=== PATIENT | female | born 1970 | race Caucasian/White ===

== ENCOUNTER 2025-05-17 22:15 | Emergency (ER) | payer MEDICAID ==
[~2025-05-17] VITALS: Ht 134.6 cm; Wt 65.0 kg
[2025-05-17 22:23] VITALS: O2SAT 98
[2025-05-17 22:46] VITALS: BP 149/83; PULSE 62; RESP 18; TEMP 36.7; O2SAT 99
[2025-05-17 23:27] LABS: BASOPHILS % 0.5 % (0.0-2.0); EOSINOPHILS % 2.0 % (0.0-5.0); HEMATOCRIT. 39.9 % (36.0-48.0); HEMOGLOBIN. 13.1 g/dL (12.0-16.0); LYMPHOCYTES % 24.6 % (20.0-50.0); MEAN PLATELET VOLUME 8.1 fl (7.4-10.4); MONOCYTES % 8.0 % (2.0-8.0); NEUTROPHILS % 64.9 % (40.0-76.0); PLATELET 354 x1000/uL (130-400); RED BLOOD CELL COUNT 4.44 mill/uL (4.2-5.4); RED CELL DISTRIBUTION WIDTH 14.1 % (11.6-14.6)
[2025-05-17 23:39] LABS: CREATININE 0.6 mg/dL (0.6-1.0); UREA NITROGEN BLOOD 13 mg/dL (9-23)
[2025-05-17 23:40] LABS: TROPONIN I HIGH SENSITIVITY 6 ng/L (3.0-34)
[2025-05-17 23:41] LABS: ASPARTATE AMINOTRANSFERASE 19 IU/L (<34); BILIRUBIN DIRECT < 0.1 mg/dL (<=3.0); BILIRUBIN TOTAL 0.3 mg/dL (0.1-1.0)
[2025-05-17 23:42] LABS: PROTEIN TOTAL 7.2 g/dL (6.0-8.3)
[2025-05-18 02:13] LABS: TROPONIN I HIGH SENSITIVITY 6 ng/L (3.0-34)
== END 2025-05-18 03:09 | disposition home or self-care (01) ==
LOC: ER 22:15 → CANBEDREQ 05-18 02:47 → ER 05-18 03:09
DX: R60.0 Localized edema (principal); R25.2 Cramp and spasm; M79.89 Other specified soft tissue disorders; I87.1 Compression of vein; Z79.899 Other long term (current) drug therapy
CPT/HCPCS: 36415; 71045; 80048; 80076; 83880; 84484; 85025; 93005; 93970; 99284; 99285